=== PATIENT | female | born 1990 | race Caucasian/White ===

== ENCOUNTER 2017-01-11 21:03 | Emergency (ER) | payer OTHER ==
[~2017-01-11] VITALS: Ht 170.2 cm; Wt 63.9 kg
[~2017-01-11 21:03] MED LIST: ATV/1 PO; BCPILLS PO; IBUP-1050 PO
[2017-01-11 21:05] VITALS: TEMP 36.7; Ht 170.2 cm; Wt 63.9 kg
[2017-01-11] MEDS ORDERED: SODIUM CHLORIDE 0.9% 1000ML 1,000 ML IV STA (21:23)
[2017-01-11] MEDS ORDERED: ONDANSETRON INJ 2 MG/ML 2 ML VIAL IV STA (21:23)
[2017-01-11 21:49] LABS: BASO % 0.4 %; BASO ABS # 0.03 K/uL (0-0.2); COMPLETE YES; EOS % 1.4 %; HEMATOCRIT 39.8 % (37-47); IG% 0.2 %; LYMPH % 26.4 %; LYMPH ABS # 2.26 K/uL (1.2-3.4); MEAN CELL VOLUME 90.7 fL (80-100); MEAN CORPUSCULAR HGB CONC 34.2 g/dl (32-36); MEAN PLATELET VOLUME 10.1 fL (7.4-10.4); MONO % 8.4 %; NEUT % 63.2 %; PLATELET COUNT 270 K/uL (130-400); RED BLOOD COUNT 4.39 M/uL (4.2-5.4); WHITE BLOOD COUNT 8.55 K/uL (4.8-10.8)
[2017-01-11] MEDS ORDERED: KETOROLAC TROMETHAMINE 30 MG/ML VIAL IV STA (21:52)
[2017-01-11 21:59] LABS: URINE APPEARANCE CLOUDY (CLEAR); URINE BILIRUBIN NEG (NEG); URINE COLOR YELLOW; URINE EPITHELIAL CELL AUTO >30 /lpf (0-5); URINE NITRITE NEG (NEG); URINE PH 7.5 (4.5-7.5); URINE SPECIFIC GRAVITY 1.029 (1.000-1.030); UROBILINOGEN NEG (NEG); ZZUR CULT IF INDIC CLEAN CATCH YES
[2017-01-11 22:00] LABS: MANUAL MICROSCOPIC REQUIRED? NO; REVIEW REQ? NO
[2017-01-11] MEDS ORDERED: ATV1 PO (22:02)
[2017-01-11] MEDS ORDERED: PRVHFAIN INH (22:02)
[2017-01-11 22:06] LABS: BUN/CREATININE RATIO 24.8 (10-20); CREATININE 0.63 mg/dl (0.60-1.20); POTASSIUM 3.4 mmol/L (3.5-5.1)
--- NOTE | 2017-01-11 22:16 | DIAGNOSTIC IMAGING REPORT ---
CT SCAN OF THE ABDOMEN AND PELVIS WITHOUT IV CONTRAST CLINICAL HISTORY: Right flank pain. COMPARISON STUDY: Abdominal CT dated 10/10/2015. TECHNIQUE: CT scan of the abdomen and pelvis is performed from the lung bases to the proximal femora. Images are reviewed in the axial, sagittal, and coronal planes. IV contrast was not administered for this examination. Automated dose control exposure was utilized. CT DOSE: 456.60 mGy.cm FINDINGS: Lung bases: The heart is normal in size and without pericardial effusion. The lung bases are clear. Liver: The unenhanced liver is normal in size, contour, and attenuation. There is no intrahepatic biliary ductal dilatation. Gallbladder: Surgically absent noting clips in the gallbladder fossa. Spleen: Normal in size and attenuation. Pancreas: Unremarkable. Adrenal glands: Unremarkable. Kidneys: The unenhanced kidneys are normal in size and without hydronephrosis. There are numerous (less than 10) punctate nonobstructing bilateral renal calculi. These measure up to 2 mm. There is no evidence of contour deforming renal mass lesion. Abdominal vasculature: The abdominal aorta is normal in course and caliber. Bowel: The small bowel and colon are normal in course and caliber. The appendix is surgically absent. Peritoneum: There is no intraperitoneal free air or abdominal ascites. There is a small fat-containing umbilical hernia. Lymphadenopathy: None. Pelvic viscera: The bladder and uterus are normal as visualized. There are bilateral ovarian follicles. A 2.2 cm dermoid is noted in the right ovary as seen on image #[id number]. This contains macroscopic fat and a small calcification. Skeletal structures: No lytic or blastic lesions are seen. IMPRESSION: 1. There are no acute infectious or inflammatory findings in the abdomen or pelvis. 2. There are bilateral punctate nonobstructing renal calculi. No obstructing kidney stone is identified and there is no hydronephrosis. 3. A right ovarian dermoid is again noted. Electronically signed by: Manuel Huang M.D. 01/11/2017 10:14 PM Dictated Date/Time: 01/11/2017 10:07 PM
[2017-01-11 22:17] LABS: CALCIUM 8.7 mg/dl (8.5-10.1)
[2017-01-11] MEDS ORDERED: FENTANYL CITRATE INJ 50 MCG/1 ML 2 ML VIAL IV STA (22:36)
--- NOTE | 2017-01-11 23:23 | EMERGENCY ROOM VISIT NOTE ---
History Report prepared by Scribe: Vee Wright Under the Supervision of: Dr. Raul Funez D.O. First contact with patient: 21:23 Chief Complaint: ABDOMINAL PAIN Stated Complaint: INTENSE PAIN IN LOWER RIGHT PUBIC AREA AND IN BACK Nursing Triage Summary: Patient c/o of lower abdomen and back pain since yesterday. Associated nausea and chills. Diarrhea on Wednesday, now regular. History of Present Illness The patient is a 26 year old female who presents to the Emergency Room with complaints of persistent abdominal pain that started yesterday. She rates her discomfort as a 7/10 and reports the pain radiates into her lower back. She has tried a heating pad, Aleve and Tylenol but states they had provided no relief. She notes she experienced diarrhea yesterday, but it has resolved. She has also experienced nausea but has not vomited. The patient denies any urinary symptoms. She notes her appetite has been decreased in the past day. She has undergone both a cholecystectomy and appendectomy in the past. Source of History: patient Onset: yesterday Position: abdomen Symptom Intensity: 7/10 Timing: other (persistent) Modifying Factors (Relieving): tylenol, ibuprofen, heat Associated Symptoms: + back pain, + diarrhea, + nausea, No urinary symptoms , No vomiting Review of Systems See HPI for pertinent positives & negatives. A total of 10 systems reviewed and were otherwise negative. Past Medical & Surgical Medical Problems: (1) Abdominal pain (2) Anxiety (3) Dysfunctional gallbladder (4) Exercise-induced asthma (5) Exercise-induced asthma (6) Gastritis Surgical Problems: (1) History of appendectomy (2) History of cholecystectomy (3) History of cholecystectomy Social History Problems: (1) Uses control Family History No pertinent family history Social History Smoking Status: Never Smoker Alcohol Use: occasionally Drug Use: none Marital Status: single Housing Status: lives with family Occupation Status: employed Current/Historical Medications Scheduled Control Pills ( Control Pills), 1 TAB PO DAILY Scheduled PRN Albuterol (Ventolin Hfa), 2 PUFFS INH Q4H PRN for Rescue/Asthma Symptoms Lorazepam (Lorazepam), 1 MG PO TID PRN for Anxiety Allergies Coded Allergies: Tramadol (Verified Allergy, Intermediate, RASH.HIVES, 06/13/16) Physical Exam Vital Signs Date Time Temp Pulse Resp B/P Pulse Ox O2 Delivery O2 Flow Rate FiO2 4/24/17 23:05 90 16 121/70 97 Room Air 01/11/17 21:05 36.7 107 18 124/81 97 Room Air Physical Exam CONSTITUTIONAL/VITAL SIGNS: Reviewed / noted above. GENERAL: Non-toxic in appearance. INTEGUMENTARY: Warm, dry, and [place]. HEAD: Normocephalic. EYES: without scleral icterus or trauma. ENT/OROPHARYNX: clear and moist. LYMPHADENOPATHY/NECK: Is supple without lymphadenopathy or meningismus. RESPIRATORY: Lungs clear and equal. CARDIOVASCULAR: Regular rate and rhythm. GI/ABDOMEN: Soft and nontender. No organomegaly or pulsatile mass. No rebound or guarding. Normal bowel sounds. EXTREMITIES: Warm and well perfused. BACK: Right sided CVA tenderness. NEUROLOGICAL: Intact without focal deficits. PSYCHIATRIC: normal affect. MUSCULOSKELETAL: Normally developed with good muscle tone. Medical Decision & Procedures ER Provider Diagnostic Interpretation: This CT scan was reviewed and interpreted by the radiologist and reviewed by myself. CT SCAN OF THE ABDOMEN AND PELVIS WITHOUT IV CONTRAST IMPRESSION: 1. There are no acute infectious or inflammatory findings in the abdomen or pelvis. 2. There are bilateral punctate nonobstructing renal calculi. No obstructing kidney stone is identified and there is no hydronephrosis. 3. A right ovarian dermoid is again noted. Electronically signed by: Manuel Huang M.D. 01/11/2017 10:14 PM Laboratory Results 01/11/17 21:35 Red Blood Count 4.39, Mean Corpuscular Volume 90.7, Mean Corpuscular Hemoglobin 31.0, Mean Corpuscular Hemoglobin Concent 34.2, Mean Platelet Volume 10.1, Neutrophils (%) (Auto) 63.2, Lymphocytes (%) (Auto) 26.4, Monocytes (%) (Auto) 8.4, Eosinophils (%) (Auto) 1.4, Basophils (%) (Auto) 0.4, Neutrophils # (Auto) 5.40, Lymphocytes # (Auto) 2.26, Monocytes # (Auto) 0.72, Eosinophils # (Auto) 0.12, Basophils # (Auto) 0.03 01/11/17 21:35 Test 01/11/17 21:29 01/11/17 21:35 Urine Color YELLOW Urine Appearance CLOUDY (CLEAR) Urine pH 7.5 (4.5-7.5) Urine Specific [place] 1.029 (1.000-1.030) Urine Protein NEG (NEG) Urine Glucose (UA) NEG (NEG) Urine Ketones NEG (NEG) Urine Occult Blood 1+ (NEG) Urine Nitrite NEG (NEG) Urine Bilirubin NEG (NEG) Urine Urobilinogen NEG (NEG) Urine Leukocyte Esterase NEG (NEG) Urine WBC (Auto) 1-5 /hpf (0-5) Urine RBC (Auto) 10-30 /hpf (0-4) Urine Hyaline Casts (Auto) 1-5 /lpf (0-5) Urine Epithelial Cells (Auto) >30 /lpf (0-5) Urine Bacteria (Auto) 1+ (NEG) Urine Test NEG (NEG) White Blood Count 8.55 K/uL (4.8-10.8) Red Blood Count 4.39 M/uL (4.2-5.4) Hemoglobin 13.6 g/dL (12.0-16.0) Hematocrit 39.8 % (37-47) Mean Corpuscular Volume 90.7 fL (80-100) Mean Corpuscular Hemoglobin 31.0 pg (25-34) Mean Corpuscular Hemoglobin Concent 34.2 g/dl (32-36) Platelet Count 270 K/uL (130-400) Mean Platelet Volume 10.1 fL (7.4-10.4) Neutrophils (%) (Auto) 63.2 % Lymphocytes (%) (Auto) 26.4 % Monocytes (%) (Auto) 8.4 % Eosinophils (%) (Auto) 1.4 % Basophils (%) (Auto) 0.4 % Neutrophils # (Auto) 5.40 K/uL (1.4-6.5) Lymphocytes # (Auto) 2.26 K/uL (1.2-3.4) Monocytes # (Auto) 0.72 K/uL (0.11-0.59) Eosinophils # (Auto) 0.12 K/uL (0-0.5) Basophils # (Auto) 0.03 K/uL (0-0.2) RDW Standard Deviation 40.4 fL (36.4-46.3) RDW Coefficient of Variation 12.1 % (11.5-14.5) Immature Granulocyte % (Auto) 0.2 % Immature Granulocyte # (Auto) 0.02 K/uL (0.00-0.02) Anion Gap 10.0 mmol/L (3-11) Est Creatinine Clear Calc Drug Dose 131.6 ml/min Estimated GFR () 143.5 Estimated GFR (Non- 123.8 BUN/Creatinine Ratio 24.8 (10-20) Calcium Level 8.7 mg/dl (8.5-10.1) Total Bilirubin 0.5 mg/dl (0.2-1) Direct Bilirubin 0.1 mg/dl (0-0.2) Aspartate Amino Transf (AST/SGOT) 9 U/L (15-37) Alanine Aminotransferase (ALT/SGPT) 17 U/L (12-78) Alkaline Phosphatase 64 U/L (45-117) Total Protein 6.8 gm/dl (6.4-8.2) Albumin 3.8 gm/dl (3.4-5.0) Lipase 259 U/L (73-393) Laboratory results as stated above per my review. Medications Administered Medications (Trade) Dose Ordered Sig/Tova Route Start Time Stop Time Status Last Admin Dose Admin Sodium Chloride (Nss 1000ml) 1,000 ml @ 999 mls/hr Q1H1M STAT IV 01/11/17 21:23 01/11/17 22:23 DC 01/11/17 21:38 999 MLS/HR Ondansetron HCl (Zofran Inj) 4 mg NOW STAT IV 01/11/17 21:23 01/11/17 21:25 DC 01/11/17 21:38 4 MG Ketorolac Tromethamine (Toradol Inj) 30 mg NOW STAT IV 01/11/17 21:52 01/11/17 21:53 DC 01/11/17 22:07 30 MG Fentanyl Citrate (Fentanyl Inj) 50 mcg NOW STAT IV 01/11/17 22:36 01/11/17 22:37 DC 01/11/17 22:47 50 MCG ED Course 2122: Zofran 4 mg IV, NSS 1000 ml @ 999 mls/hr IV. 2123: Previous medical records were reviewed. The patient was evaluated in room C2. A complete history and physical examination was performed. 2151: Toradol 30 mg IV. 2235: Fentanyl Citrate 50 mcg IV. 5: I reevaluated the patient. She is feeling better. I discussed her results and discharge instructions and she verbalized complete understanding and agreement. Medical Decision Differential considered: pancreatitis, hepatitis, AAA, UTI, pyelonephritis, kidney stones, diverticulitis, shingles, bowel obstruction mesenteric ischemia, intussusception, hernia, ovarian torsion, ruptured ovarian cyst, ectopic , . This is a 26-year-old female who presents to the ED with a chief complaint of right lower quadrant abdominal pain radiating to the low back. The patient states that her symptoms started on Wednesday. She states that she just recently ended her period. She states that she had some diarrhea on Wednesday night as well. She denies urinary symptoms. Vital signs are stable. Her physical exam revealed some mild right CVA tenderness. CT scan of the abdomen and pelvis did not show acute disease. CBC is normal. Complete metabolic panel was normal. Lipase is negative. Urine did not show obvious infection. There was contamination. test was negative. The patient was told results the test. She was treated with IV Toradol and IV fentanyl as well as IV fluids and IV Zofran. She is felt to be stable for discharge. Impression Primary Impression: Right lower quadrant abdominal pain Scribe Attestation The scribe's documentation has been prepared under my direction and personally reviewed by me in its entirety. I confirm that the note above accurately reflects all work, treatment, procedures, and medical decision making performed by me. Departure Information Dispostion Home / Self-Care Referrals Erasmo No PA-C (PCP) Patient Instructions Abdominal Pain, My [facility] Additional Instructions Follow-up with your doctor for further care and evaluation in 1-2 days. Return to the emergency department for worsening or new symptoms or any concerns. You have been examined and treated today on an emergency basis only. This is not a substitute for, or an effort to provide, complete comprehensive medical care. It is impossible to recognize and treat all injuries or illnesses in a single emergency department visit. It is therefore important that you follow up closely with your doctor. Call as soon as possible for an appointment. School Instructions Return To School: 2 days
[2017-01-11] MEDS ORDERED: PERCOCET HOME PACK PO ONE (23:45)
[2017-01-11 23:46] VITALS: BP 122/80; PULSE 93; O2SAT 100
== END 2017-01-11 23:48 | disposition home or self-care (01) ==
LOC: C.EDB 21:04 → C.EDC 23:48
DX: R10.31 Right lower quadrant pain (principal); R19.7 Diarrhea, unspecified; Z90.49 Acquired absence of other specified parts of digestive tract; Z90.89 Acquired absence of other organs; J45.990 Exercise induced bronchospasm

== ENCOUNTER 2017-06-28 20:28 | Emergency (ER) | payer OTHER ==
[~2017-06-28] VITALS: Ht 167.6 cm; Wt 68.5 kg
[~2017-06-28 20:28] MED LIST changes: -ATV/1 PO; +ATV1 PO; -IBUP-1050 PO; +PRVHFAIN INH
[2017-06-28 20:30] VITALS: TEMP 37; Ht 167.6 cm; Wt 68.5 kg
[2017-06-28] MEDS ORDERED: PROCHLORPERAZINE 5 MG/ML 2 ML VIAL IV STA (21:39)
[2017-06-28] MEDS ORDERED: KETOROLAC TROMETHAMINE 30 MG/ML VIAL IV STA (21:39)
[2017-06-28] MEDS ORDERED: DiphenhydrAMINE HCL 50 MG/ML VIAL IV STA (21:39)
[2017-06-28] MEDS ORDERED: SODIUM CHLORIDE 0.9% 1000ML 1,000 ML IV ONE (21:45)
[2017-06-28] MEDS ORDERED: DEXAMETHASONE SOD INJ 10 MG/ML VIAL IV ONE (21:45)
[2017-06-28 22:00] LABS: BASO % 0.1 %; BASO ABS # 0.01 K/uL (0-0.2); COMPLETE YES; EOS % 2.7 %; HEMATOCRIT 40.1 % (37-47); IG% 0.1 %; LYMPH % 31.3 %; LYMPH ABS # 2.09 K/uL (1.2-3.4); MEAN CELL VOLUME 88.9 fL (80-100); MEAN CORPUSCULAR HEMOGLOBIN 30.6 pg (25-34); MEAN CORPUSCULAR HGB CONC 34.4 g/dl (32-36); MEAN PLATELET VOLUME 9.7 fL (7.4-10.4); MONO % 6.7 %; NEUT % 59.1 %; PLATELET COUNT 270 K/uL (130-400); RED BLOOD COUNT 4.51 M/uL (4.2-5.4); WHITE BLOOD COUNT 6.68 K/uL (4.8-10.8)
[2017-06-28 22:18] LABS: BUN/CREATININE RATIO 22.7 (10-20); CREATININE 0.67 mg/dl (0.60-1.20); POTASSIUM 3.3 mmol/L (3.5-5.1)
[2017-06-28 22:21] LABS: ALB/GLOB RATIO 1.2 (0.9-2)
--- NOTE | 2017-06-28 22:50 | DIAGNOSTIC IMAGING REPORT ---
HEAD CT NONCONTRAST CT DOSE: 537.48 mGy.cm HISTORY: left side migraine TECHNIQUE: Multiaxial CT images of the head were performed without the use of intravenous contrast. Automated exposure control was utilized for this study. A dose lowering technique was utilized adhering to the principles of ALARA. Comparison: None. Findings: The paranasal sinuses and mastoid air cells are clear. The calvarium and skull base are intact. The ventricles and sulci are within normal limits. There is no mass, hematoma, midline shift, or acute infarct. Impression: No acute intracranial abnormality. Electronically signed by: Mahamed Muniz M.D. 06/28/2017 10:48 PM Dictated Date/Time: 06/28/2017 10:46 PM
[2017-06-28 22:56] VITALS: BP 114/74; PULSE 106; O2SAT 97
--- NOTE | 2017-06-28 23:39 | EMERGENCY ROOM VISIT NOTE ---
History First contact with patient: 21:31 Chief Complaint: HEADACHE Stated Complaint: MIGRAINE, L SIDE OF HEAD,EAR, TEETH,LIGHT History of Present Illness The patient is a 26 year old female who presents to the Emergency Room with complaints of left sided migraine headache that has been slowly worsening over the past 12 hours. The patient states that she took ibuprofen twice today which did help her symptoms. She went home early from work this afternoon, took a nap, and continued to have discomfort. This is not the worst headache of her life. She has had similar symptoms in the past but has never had imaging of her head. She has not had fever or chills. No numbness or paresthesias. She rates her discomfort a 7/10. Review of Systems More than 10 systems were reviewed and otherwise negative with the exception of history of present illness. Past Medical/Surgical History Medical Problems: (1) Abdominal pain (2) Anxiety (3) Dysfunctional gallbladder (4) Exercise-induced asthma (5) Exercise-induced asthma (6) Gastritis Surgical Problems: (1) History of appendectomy (2) History of cholecystectomy (3) History of cholecystectomy Social History Problems: (1) Uses control Family History No pertinent family history Social History Smoking Status: Never Smoker Alcohol Use: occasionally Drug Use: none Marital Status: single Housing Status: lives with family Occupation Status: employed Current/Historical Medications Scheduled Control Pills ( Control Pills), 1 TAB PO DAILY Scheduled PRN Albuterol (Ventolin Hfa), 2 PUFFS INH Q4H PRN for Rescue/Asthma Symptoms Lorazepam (Lorazepam), 1 MG PO TID PRN for Anxiety Physical Exam Vital Signs Date Time Temp Pulse Resp B/P (MAP) Pulse Ox O2 Delivery O2 Flow Rate FiO2 06/28/17 22:56 106 114/74 97 Room Air 06/28/17 20:30 37.0 129 18 135/83 97 Room Air Physical Exam VITALS: Vitals are noted on the nurse's note and reviewed by myself. Vital signs stable. GENERAL: Well-developed, well-nourished, white female who is resting comfortably in a darkened room. Patient is cooperative with the examination. HEAD: Normocephalic atraumatic. EARS: External ear normal. External auditory canals clear, tympanic membranes pearly garcia without erythema or effusion bilaterally. EYES: Pupils equal round and reactive to light and accommodation. Conjunctivae without injection, sclerae without icterus. Extraocular movements intact. NOSE: Patent, turbinates without inflammation or discharge. MOUTH: Mucous membranes moist. Tonsils are not enlarged. Pharynx without erythema, blood, or exudate. Uvula midline. Airway patent. NECK: Supple without nuchal rigidity. No lymphadenopathy. No thyromegaly. Cervical spine is nontender. No meningismus. HEART: Regular rate and rhythm without murmurs gallops or rubs. LUNGS: Clear to auscultation bilaterally without wheezes, rales or rhonchi. No retractions or accessory muscle use. ABDOMEN: Positive normal bowel sounds x 4. Soft, nontender, without masses or organomegaly. No guarding or rebound tenderness. MUSCULOSKELETAL: No muscle atrophy, erythema, or edema noted. Full range of motion without joint tenderness in all extremities. NEURO: Patient was alert and oriented to person place and time. CN II through XII grossly intact. Deep tendon reflexes 2+ throughout. GCS 15. Medical Decision & Procedures ER Provider Diagnostic Interpretation: HEAD CT NONCONTRAST CT DOSE: 537.48 mGy.cm HISTORY: left side migraine TECHNIQUE: Multiaxial CT images of the head were performed without the use of intravenous contrast. Automated exposure control was utilized for this study. A dose lowering technique was utilized adhering to the principles of ALARA. Comparison: None. Findings: The paranasal sinuses and mastoid air cells are clear. The calvarium and skull base are intact. The ventricles and sulci are within normal limits. There is no mass, hematoma, midline shift, or acute infarct. Impression: No acute intracranial abnormality. Laboratory Results 06/28/17 21:48 Red Blood Count 4.51, Mean Corpuscular Volume 88.9, Mean Corpuscular Hemoglobin 30.6, Mean Corpuscular Hemoglobin Concent 34.4, Mean Platelet Volume 9.7, Neutrophils (%) (Auto) 59.1, Lymphocytes (%) (Auto) 31.3, Monocytes (%) (Auto) 6.7, Eosinophils (%) (Auto) 2.7, Basophils (%) (Auto) 0.1, Neutrophils # (Auto) 3.94, Lymphocytes # (Auto) 2.09, Monocytes # (Auto) 0.45, Eosinophils # (Auto) 0.18, Basophils # (Auto) 0.01 06/28/17 21:48 Test 06/28/17 21:48 White Blood Count 6.68 K/uL (4.8-10.8) Red Blood Count 4.51 M/uL (4.2-5.4) Hemoglobin 13.8 g/dL (12.0-16.0) Hematocrit 40.1 % (37-47) Mean Corpuscular Volume 88.9 fL (80-100) Mean Corpuscular Hemoglobin 30.6 pg (25-34) Mean Corpuscular Hemoglobin Concent 34.4 g/dl (32-36) Platelet Count 270 K/uL (130-400) Mean Platelet Volume 9.7 fL (7.4-10.4) Neutrophils (%) (Auto) 59.1 % Lymphocytes (%) (Auto) 31.3 % Monocytes (%) (Auto) 6.7 % Eosinophils (%) (Auto) 2.7 % Basophils (%) (Auto) 0.1 % Neutrophils # (Auto) 3.94 K/uL (1.4-6.5) Lymphocytes # (Auto) 2.09 K/uL (1.2-3.4) Monocytes # (Auto) 0.45 K/uL (0.11-0.59) Eosinophils # (Auto) 0.18 K/uL (0-0.5) Basophils # (Auto) 0.01 K/uL (0-0.2) RDW Standard Deviation 39.7 fL (36.4-46.3) RDW Coefficient of Variation 12.3 % (11.5-14.5) Immature Granulocyte % (Auto) 0.1 % Immature Granulocyte # (Auto) 0.01 K/uL (0.00-0.02) Anion Gap 5.0 mmol/L (3-11) Est Creatinine Clear Calc Drug Dose 119.0 ml/min Estimated GFR () 140.6 Estimated GFR (Non- 121.3 BUN/Creatinine Ratio 22.7 (10-20) Calcium Level 9.0 mg/dl (8.5-10.1) Total Bilirubin 0.4 mg/dl (0.2-1) Aspartate Amino Transf (AST/SGOT) 14 U/L (15-37) Alanine Aminotransferase (ALT/SGPT) 24 U/L (12-78) Alkaline Phosphatase 68 U/L (45-117) Total Protein 6.7 gm/dl (6.4-8.2) Albumin 3.7 gm/dl (3.4-5.0) Globulin 3.0 gm/dl (2.5-4.0) Albumin/Globulin Ratio 1.2 (0.9-2) Medications Administered Medications (Trade) Dose Ordered Sig/Tova Route Start Time Stop Time Status Last Admin Dose Admin Diphenhydramine HCl (Benadryl Inj) 25 mg NOW STAT IV 06/28/17 21:39 06/28/17 21:41 DC 06/28/17 21:46 25 MG Prochlorperazine Edisylate (Compazine Inj) 5 mg NOW STAT IV 06/28/17 21:39 06/28/17 21:41 DC 06/28/17 21:48 5 MG Dexamethasone Sodium Phosphate (Decadron Inj) 10 mg NOW ONCE IV 06/28/17 21:45 06/28/17 21:46 DC 06/28/17 21:47 10 MG Sodium Chloride 1,000 ml @ 999 mls/hr Q1H1M ONCE IV 06/28/17 21:45 06/28/17 22:45 DC 06/28/17 21:45 999 MLS/HR Ketorolac Tromethamine (Toradol Inj) 30 mg NOW STAT IV 06/28/17 21:39 06/28/17 21:42 DC 06/28/17 21:48 30 MG ED Course Physical exam and history were performed. Nursing notes, EMR, and Medication List were personally reviewed. Patient appears to have migraine headache symptoms for the past one day. This feels similar to previous migraines. She has not had previous imaging in the past for this. IV access was established and labs were obtained. The patient was given IV Toradol, IV Benadryl, IV Decadron, and IV Compazine. She was hydrated with normal saline. CT scan of the head was performed. The patient's blood work is as above and was reviewed. She does not have a significantly elevated white blood cell count, gross anemia, bandemia, or significant electrolyte imbalance. CT scan does not show significant findings. On reevaluation the patient reports her pain is much better. She does not appear toxic and certainly without signs of meningitis or encephalitis. The patient does appear stable for discharge home with instructions to follow with her primary care physician. The patient was discharged home under the care of her father who is acting as the stake driver today. The chart was completed utilizing [employer] Voice Recognition Software. Grammatical errors, random word insertions, pronoun errors, and incomplete sentences are an occasional consequence of this system due to software limitations, ambient noise, and hardware issues. Any formal questions or concerns about the content, text, or information contained within the body of this dictation should be directly addressed to the provider for clarification. . Medical Decision The differential diagnosis includes, but is not limited to: acute intracranial bleed, meningitis, encephalitis, mass or mass effect, sinusitis, infection, tumor, headache, temporal arteritis and carbon monoxide exposure, and migraine. Impression Primary Impression: Migraine Departure Information Dispostion Home / Self-Care Condition GOOD Referrals Erasmo No PA-C (PCP) Forms HOME CARE DOCUMENTATION FORM, IMPORTANT VISIT INFORMATION Patient Instructions My [facility] Additional Instructions You were seen and evaluated today on an emergency basis only. This is not a substitute for, or an effort to provide, complete comprehensive medical care. It is not possible to recognize and treat all injuries or illnesses in a single emergency department visit. For this reason it is recommended that you followup with your primary care physician or neurologist this week for ongoing care and evaluation. DO NOT drive, drink alcohol, operate machinery, or perform dangerous activities today. You were given medications in the ER that can affect your ability to safely function or operate a vehicle. Rest today in a quiet, peaceful, dark environment and get a full 8-10 hrs of sleep tonight. Avoid loud noises, smoke/smoking, alcohol, bright lights, stress, or physical exertion today to minimize the chance the headache may return. Continue current medications. Ibuprofen(Motrin, Advil) may be used for fever or pain. Use 600mg every six hours as needed. Take with food. Avoid using more than 2400mg in a 24 hour period. Do not use 2400mg per day for more than three consecutive days without physician direction. Prolonged inappropriate use can lead to stomach upset or ulcers. (AND/OR) Acetaminophen(Tylenol) may be used for fever or pain. Use 1000mg every six hours as needed. Avoid using more than 4000mg in a 24 hour period. Return to the ER for passing out, worsening headache, vision problems, neck stiffness/pain, fevers, vomiting, worsening of your condition, or as needed.
== END 2017-06-28 23:13 | disposition home or self-care (01) ==
LOC: C.EDB 20:29 → C.EDD 23:13
DX: G43.909 Migraine, unspecified, not intractable, without status migrainosus (principal); F41.9 Anxiety disorder, unspecified; J45.990 Exercise induced bronchospasm; Z79.3 Long term (current) use of hormonal contraceptives

== ENCOUNTER 2017-12-12 23:12 | Emergency (ER) | payer OTHER ==
[~2017-12-12] VITALS: Ht 170.2 cm; Wt 71.2 kg
[2017-12-12 23:16] VITALS: TEMP 36.7; Ht 170.2 cm; Wt 71.2 kg
[2017-12-12] MEDS ORDERED: KETOROLAC TROMETHAMINE 15 MG/ML VIAL IV STA (23:34)
[2017-12-13 00:05] LABS: BASO % 0.3 %; BASO ABS # 0.02 K/uL (0-0.2); EOS % 1.7 %; EOS ABS # 0.11 K/uL (0-0.5); HEMATOCRIT 38.5 % (37-47); HEMOGLOBIN 13.4 g/dL (12.0-16.0); IG# 0.02 K/uL (0.00-0.02); LYMPH % 39.4 %; MEAN CELL VOLUME 88.7 fL (80-100); MEAN CORPUSCULAR HEMOGLOBIN 30.9 pg (25-34); MEAN CORPUSCULAR HGB CONC 34.8 g/dl (32-36); MEAN PLATELET VOLUME 9.6 fL (7.4-10.4); MONO ABS # 0.53 K/uL (0.11-0.59); NEUT % 50.3 %; NEUT ABS # 3.32 K/uL (1.4-6.5); PLATELET COUNT 266 K/uL (130-400); RED CELL DISTRIBUTION WIDTH CV 12.7 % (11.5-14.5); RED CELL DISTRIBUTION WIDTH SD 40.9 fL (36.4-46.3)
[2017-12-13] MEDS ORDERED: SPR28 PO (00:08)
[2017-12-13] MEDS ORDERED: HYDROmorphone INJ 0.5 MG/0.5 ML SYR IV STA ×2 (00:18→01:45)
[2017-12-13 00:34] LABS: ALBUMIN 3.5 gm/dl (3.4-5.0); CALCIUM 8.7 mg/dl (8.5-10.1); CREATININE 0.67 mg/dl (0.60-1.20); POTASSIUM 3.5 mmol/L (3.5-5.1)
[2017-12-13 00:35] LABS: TOTAL PROTEIN 6.8 gm/dl (6.4-8.2)
--- NOTE | 2017-12-13 01:21 | EMERGENCY ROOM VISIT NOTE ---
History First contact with patient: 23:18 Chief Complaint: ABDOMINAL PAIN Stated Complaint: PAIN IN LEFT LOWER ABDOMEN AND BACK- CYST? Nursing Triage Summary: c/o llq abd pain since yesterday pain worse tonight History of Present Illness The patient is a 27 year old female who presents to the Emergency Room with complaints of left lower quadrant abdominal pain. The patient reports that she first developed this pain yesterday evening. Initially, the pain was mild and controlled with ibuprofen. She states the pain was mild throughout the day, but 1-2 hours ago the pain increased. She states it is a constant, stabbing pain in the left lower abdomen and radiates into the low back. She took 2 ibuprofen a few hours prior to arrival with no relief. She rates her discomfort an 8/10. The pain is worsened when she is sitting up or twisting to the left side. She has had some nausea due to the severe pain but no vomiting. Her last menstrual period was approximately 3 weeks ago and she states she is due for her menstrual period at any time. She is on control pills to regulate her period. She denies any urinary symptoms, fevers or vaginal discharge. She has had a previous appendectomy, surgery for complications of that, bowel obstruction and cholecystectomy. She reports a history of both ovarian cysts and kidney stones and feels like this pain is somewhat similar to previous ovarian cysts. Review of Systems A complete 10 point review of systems was reviewed with the patient with pertinent positives and negatives as per history of present illness. All else were negative. Past Medical/Surgical History Medical Problems: (1) Abdominal pain (2) Anxiety (3) Dysfunctional gallbladder (4) Exercise-induced asthma (5) Exercise-induced asthma (6) Gastritis Surgical Problems: (1) History of appendectomy (2) History of cholecystectomy (3) History of cholecystectomy Social History Problems: (1) Uses control Family History No pertinent family history Social History Smoking Status: Never Smoker Alcohol Use: occasionally Drug Use: none Marital Status: single Housing Status: lives with family Occupation Status: employed Current/Historical Medications Scheduled Ethinyl Estrad/Norgestimate (Sprintec 28), 1 TAB PO DAILY Scheduled PRN Albuterol (Ventolin Hfa), 2 PUFFS INH Q4H PRN for Rescue/Asthma Symptoms Hydrocodone/Acetaminophen 5MG/325MG (Phoenix 5MG/325MG), 1-2 TABLET PO Q4H PRN for Pain Lorazepam (Lorazepam), 1 MG PO TID PRN for Anxiety Physical Exam Vital Signs Date Time Temp Pulse Resp B/P (MAP) Pulse Ox O2 Delivery O2 Flow Rate FiO2 12/13/17 02:28 95 16 119/80 97 Room Air 12/13/17 01:31 97 18 115/78 98 Room Air 12/13/17 00:25 94 20 120/70 96 Room Air 12/12/17 23:16 36.7 94 18 134/86 99 Room Air Physical Exam VITALS: Vitals are noted on the nurse's note and reviewed by myself. Vital signs stable. GENERAL: This is a 27-year-old female, in no acute distress, nondiaphoretic, well-developed well-nourished. SKIN: The skin was without rashes. EYES: Pupils equal round and reactive to light and accommodation. MOUTH: Mucous membranes moist. Tonsils are not enlarged. Pharynx without erythema or exudate. HEART: Regular rate and rhythm without murmurs gallops or rubs. LUNGS: Clear to auscultation bilaterally without wheezes, rales or rhonchi. ABDOMEN: Positive bowel sounds x 4. Soft, nondistended. There is moderate tenderness in the left lower quadrant with no guarding or rebound tenderness. NEURO: Patient was alert and oriented to person place and time. Medical Decision & Procedures ER Provider Diagnostic Interpretation: US PELVIC/ENDOVAG: Limited by bowel gas. Nabothian cysts. No endometrial thickening. Complex mass right ovary. Has both echogenic and hypoechoic components. Likely dermoid. On previous CT from December 2016 there was a right adnexal lesion with fat and calcium likely corresponding to suspected dermoid. Left ovary unremarkable small follicles. Blood flow seen to the bilateral ovaries. Radiologist: Blair Villalobos M.D. US RENAL: No hydronephrosis. Bilateral nephrolithiasis. Right kidney 11.3 cm. Left kidney 11.9 cm. Radiologist: Teri Skaggs M.D. Laboratory Results 12/12/17 23:59 Red Blood Count 4.34, Mean Corpuscular Volume 88.7, Mean Corpuscular Hemoglobin 30.9, Mean Corpuscular Hemoglobin Concent 34.8, Mean Platelet Volume 9.6, Neutrophils (%) (Auto) 50.3, Lymphocytes (%) (Auto) 39.4, Monocytes (%) (Auto) 8.0, Eosinophils (%) (Auto) 1.7, Basophils (%) (Auto) 0.3, Neutrophils # (Auto) 3.32, Lymphocytes # (Auto) 2.60, Monocytes # (Auto) 0.53, Eosinophils # (Auto) 0.11, Basophils # (Auto) 0.02 12/12/17 23:59 Test 12/12/17 23:55 12/12/17 23:59 Urine Color YELLOW Urine Appearance CLEAR (CLEAR) Urine pH 5.5 (4.5-7.5) Urine Specific [place] 1.027 (1.000-1.030) Urine Protein NEG (NEG) Urine Glucose (UA) NEG (NEG) Urine Ketones NEG (NEG) Urine Occult Blood 3+ (NEG) Urine Nitrite NEG (NEG) Urine Bilirubin NEG (NEG) Urine Urobilinogen NEG (NEG) Urine Leukocyte Esterase NEG (NEG) Urine WBC (Auto) 1-5 /hpf (0-5) Urine RBC (Auto) 5-10 /hpf (0-4) Urine Hyaline Casts (Auto) 1-5 /lpf (0-5) Urine Epithelial Cells (Auto) >30 /lpf (0-5) Urine Bacteria (Auto) NEG (NEG) Urine Test NEG (NEG) White Blood Count 6.60 K/uL (4.8-10.8) Red Blood Count 4.34 M/uL (4.2-5.4) Hemoglobin 13.4 g/dL (12.0-16.0) Hematocrit 38.5 % (37-47) Mean Corpuscular Volume 88.7 fL (80-100) Mean Corpuscular Hemoglobin 30.9 pg (25-34) Mean Corpuscular Hemoglobin Concent 34.8 g/dl (32-36) Platelet Count 266 K/uL (130-400) Mean Platelet Volume 9.6 fL (7.4-10.4) Neutrophils (%) (Auto) 50.3 % Lymphocytes (%) (Auto) 39.4 % Monocytes (%) (Auto) 8.0 % Eosinophils (%) (Auto) 1.7 % Basophils (%) (Auto) 0.3 % Neutrophils # (Auto) 3.32 K/uL (1.4-6.5) Lymphocytes # (Auto) 2.60 K/uL (1.2-3.4) Monocytes # (Auto) 0.53 K/uL (0.11-0.59) Eosinophils # (Auto) 0.11 K/uL (0-0.5) Basophils # (Auto) 0.02 K/uL (0-0.2) RDW Standard Deviation 40.9 fL (36.4-46.3) RDW Coefficient of Variation 12.7 % (11.5-14.5) Immature Granulocyte % (Auto) 0.3 % Immature Granulocyte # (Auto) 0.02 K/uL (0.00-0.02) Anion Gap 9.0 mmol/L (3-11) Est Creatinine Clear Calc Drug Dose 122.7 ml/min Estimated GFR () 139.6 Estimated GFR (Non- 120.5 BUN/Creatinine Ratio 18.6 (10-20) Calcium Level 8.7 mg/dl (8.5-10.1) Total Bilirubin 0.3 mg/dl (0.2-1) Aspartate Amino Transf (AST/SGOT) 14 U/L (15-37) Alanine Aminotransferase (ALT/SGPT) 22 U/L (12-78) Alkaline Phosphatase 51 U/L (45-117) Total Protein 6.8 gm/dl (6.4-8.2) Albumin 3.5 gm/dl (3.4-5.0) Globulin 3.3 gm/dl (2.5-4.0) Albumin/Globulin Ratio 1.1 (0.9-2) Medications Administered Medications (Trade) Dose Ordered Sig/Tova Route Start Time Stop Time Status Last Admin Dose Admin Ketorolac Tromethamine (Toradol Inj) 15 mg NOW STAT IV 12/12/17 23:34 12/12/17 23:35 DC 12/12/17 23:57 15 MG Hydromorphone HCl (Dilaudid Inj) 0.5 mg NOW STAT IV 12/13/17 00:18 12/13/17 00:20 DC 12/13/17 00:18 0.5 MG Hydromorphone HCl (Dilaudid Inj) 0.5 mg NOW STAT IV 12/13/17 01:45 12/13/17 01:46 DC 12/13/17 01:53 0.5 MG Acetaminophen/ Hydrocodone Bitart (Phoenix 5/325mg Home Pack) 1 homepack UD ONCE PO 12/13/17 02:30 12/13/17 02:31 DC 12/13/17 02:33 1 HOMEPACK ED Course The patient was evaluated as above. Labs were drawn and IV access was obtained. Patient was medicated with 15 mg Toradol IV. Patient reported no improvement of her pain. She was given 0.5 mg of Dilaudid IV. Ultrasounds were performed and read by radiology as above. Patient was reevaluated and her pain was returning. She was given an additional dose of Dilaudid. Discharge instructions were reviewed with the patient. The patient verbalized understanding of my assessment and treatment plan and was discharged home in good condition. Medical Decision Differential diagnosis includes ovarian cyst, ovarian torsion, ectopic , UTI, kidney stone, colitis, diverticulitis, small bowel obstruction, among others. The patient is a 27-year-old female who presents today complaining of left lower quadrant pelvic pain. Labs revealed no leukocytosis, anemia or concerning electrolyte abnormalities. Urinalysis was not suggestive of infection. Urinalysis did show 3+ blood, although this may be due to menstruation as patient states she is due to start her period at any time. Urine was negative. Pelvic ultrasound was unremarkable. Renal ultrasound was performed due to the hematuria and was unremarkable. Symptoms are not consistent with a kidney stone. I discussed options of care with the patient including discharge home with close follow-up versus CT scan for further evaluation. She prefers to avoid radiation if possible and agrees to be discharged home with close PCP/CLASSROOM TECHNOLOGY TECHNICIAN follow-up. She was given a short course of Phoenix for pain. She was advised to return for worsening pain, vomiting, fevers or other new/concerning symptoms. Based on the patient's presentation and work up, I feel the patient is stable for outpatient treatment. The patient was educated to return to the emergency department for any worsening of their current condition or new/concerning symptoms. She will follow up with her PCP and CLASSROOM TECHNOLOGY TECHNICIAN. Medication Reconcilliation Current Medication List: was personally reviewed by me Blood Pressure Screening Patient's blood pressure: Normal blood pressure Impression Primary Impression: Left lower quadrant pain Departure Information Dispostion Home / Self-Care Condition GOOD Prescriptions Hydrocodone/Acetaminophen 5MG/325MG (P[place] 5MG/325MG) Tab 1-2 TABLET PO Q4H Y for Pain, #12 TAB For Initial Treatment Prov: Peg Hdez PA-C 12/13/17 Referrals Spencer Will D.O. (PCP) Patient Instructions My [facility] Additional Instructions You have been treated in the Emergency Department for your Abdominal Pain. Laboratory results and imaging studies have ruled out any emergent causes for your abdominal pain which would warrant admission or surgery. You have been prescribed [place] to be used for pain control. This is a narcotic medication. You cannot drive or consume alcohol while on this medicine. This medicine should only be used for pain that cannot be controlled with over-the- counter pain medicines. For pain control, you can use the following [id number] medicines (if >12 yo): - Regular strength (325mg/tab) Tylenol (acetaminophen) 2 tabs every 4-6 hours as needed. Do not exceed 12 tablets in a 24 hour period. Avoid taking more than 4 grams (4000 mg) of Tylenol per day. This includes any other sources of acetaminophen you may take on a regular basis. - Regular strength (200 mg/tab) Advil (ibuprofen) 1-2 tabs every 4-6 hours as needed. Do not exceed a dose of 3200 mg per day. Drink plenty of water and stay well hydrated. As with any trip to the Emergency Department, you should follow-up with your Primary Care Provider from today's visit. Contact your CLASSROOM TECHNOLOGY TECHNICIAN tomorrow to schedule follow-up. Return to the emergency department if your symptoms persist despite treatment plan outlined above or if the following symptoms occur: Worsening pain, fevers, vomiting, or other new/concerning symptoms.
[2017-12-13] MEDS ORDERED: HYDR-5688 PO (02:25)
[2017-12-13 02:28] VITALS: BP 119/80; PULSE 95; O2SAT 97
[2017-12-13] MEDS ORDERED: NORCO 5/325MG HOME PACK PO ONE (02:30)
--- NOTE | 2017-12-13 06:54 | DIAGNOSTIC IMAGING REPORT ---
PELVIC ULTRASOUND CLINICAL HISTORY: Left lower quadrant pain radiating into back. COMPARISON STUDY: CT of the abdomen and pelvis January 11, 2017. TECHNIQUE: Transabdominal and transvaginal sonography of the pelvis was performed. FINDINGS: The uterus measures 7 x 2.5 x 3.7 cm. Endometrium measures 2 mm in thickness. Incidental note is made of a few nabothian cysts. The right ovary measures 4.8 x 2.9 x 2.1 cm and contains a 2.4 cm lesion with peripheral echogenicity and central hypoechoic focus which corresponds to a dermoid shown on CT of January 11, 2017. The left ovary is normal, measuring 3.5 x 1.5 x 2.8 cm. There is color flow within each ovary. IMPRESSION: 1. No acute process within the pelvis by sonography. No sonographic evidence of ovarian torsion. 2. Redemonstration of a 2.4 cm right ovarian dermoid cyst as shown on CT of January 11, 2017. Nonemergent gynecologic consultation is recommended. Electronically signed by: Chris Rodriguez M.D. 12/13/2017 6:53 AM Dictated Date/Time: 12/13/2017 6:50 AM
--- NOTE | 2017-12-13 07:09 | DIAGNOSTIC IMAGING REPORT ---
ULTRASOUND KIDNEYS AND BLADDER CLINICAL HISTORY: Left pelvic pain. Back pain. COMPARISON STUDY: Abdominal CT dated 01/11/2017. TECHNIQUE: Real-time, grayscale, and color flow sonography of the kidneys and bladder is performed. Images are reviewed in the transverse and longitudinal planes. FINDINGS: Kidneys: The kidneys are normal in size and echotexture. The right kidney measures 11.3 x 4.2 x 4.6 cm and the left kidney measures 11.9 x 5.0 x 4.9 cm. There is no hydronephrosis. Numerous small bilateral nonobstructing renal calculi are identified. There is no sonographic evidence of contour deforming renal mass lesion. No perinephric fluid is identified. Bladder: The bladder is decompressed and not well evaluated. Ureteral jets were not seen. IMPRESSION: 1. The kidneys are normal in size and without hydronephrosis. 2. There are bilateral nonobstructing renal calculi. 3. The bladder was decompressed and not well evaluated. Electronically signed by: Manuel Huang M.D. 12/13/2017 7:08 AM Dictated Date/Time: 12/13/2017 7:07 AM
== END 2017-12-13 02:36 | disposition home or self-care (01) ==
LOC: C.EDB 23:13
DX: R10.32 Left lower quadrant pain (principal); J45.990 Exercise induced bronchospasm; Z79.3 Long term (current) use of hormonal contraceptives; Z90.49 Acquired absence of other specified parts of digestive tract; Z86.59 Personal history of other mental and behavioral disorders